=== PATIENT | female | born 1965 | race Caucasian/White ===

== ENCOUNTER 2016-11-01 16:03 | Emergency (ER) | payer MEDICAID ==
[~2016-11-01] VITALS: Ht 165.1 cm; Wt 100.2 kg
[2016-11-01 16:13] VITALS: BP 135/76
[2016-11-01] MEDS ORDERED: cefTRIAXone SOD 1,000 MG VL ONE (16:44)
[2016-11-01] MEDS ORDERED: cefTRIAXone W LIDOCAINE 1 GM IM IM ONE (16:45)
[2016-11-01] MEDS ORDERED: cefTRIAXone SOD 1,000 MG VL IM ONE (17:00)
== END 2016-11-01 17:28 | disposition home or self-care (01) ==
LOC: ER 16:13
DX: J02.0 Streptococcal pharyngitis (principal); I10 Essential (primary) hypertension; F17.210 Nicotine dependence, cigarettes, uncomplicated
CPT/HCPCS: 87880; 96372; 99283; J0696

== ENCOUNTER 2017-04-25 20:20 | Emergency (ER) | payer MEDICAID ==
[~2017-04-25] VITALS: Ht 165.1 cm; Wt 99.8 kg
[2017-04-25 20:42] VITALS: BP 175/87
[2017-04-25] MEDS ORDERED: KETOROLAC TROMETH 60MG/2ML VIAL IM ONE (21:30)
[2017-04-25 21:45] LABS: Basophils # (auto) 0 uL; Basophils % (auto) 0.4 % (0.0-2.0); CONDITION Y; Eosinophils # (auto) 0.1 uL; Eosinophils % (auto) 1.6 % (0.0-7.0); Hematocrit 37.3 % (36.0-46.0); Hemoglobin 12.4 g/dL (12.2-16.2); Lymphocytes # (auto) 2.7 uL; Lymphocytes % (auto) 37.8 % (10.0-50.0); Mean Corpuscular Hemoglobin 28.2 pg (28.0-32.0); Mean Corpuscular Hgb Conc. 33.3 g/dL (32.0-36.0); Mean Corpuscular Volume 84.8 fL (80.0-100.0); Mean Platelet Volume 8.8 fL (6.9-10.8); Monocytes # (auto) 0.5 uL; Monocytes % (auto) 6.4 % (0.0-12.0); Neutrophils # (auto) 3.8 uL; Neutrophils % (auto) 53.8 % (37.0-80.0); Platelet Count (auto) 286 10^3/uL (140-450); Red Cell Distribution Width 14.5 % (11.8-14.3)
== END 2017-04-26 00:45 | disposition home or self-care (01) ==
LOC: ER 20:21
DX: R60.9 Edema, unspecified (principal); I10 Essential (primary) hypertension; F17.210 Nicotine dependence, cigarettes, uncomplicated
CPT/HCPCS: 36415; 85025; 93970; 96372; 99285; J1885

== ENCOUNTER 2019-04-09 00:31 | Inpatient (IN) | payer MEDICAID ==
[~2019-04-09] VITALS: Ht 167.6 cm; Wt 102.6 kg
[2019-04-09 02:14] LABS: Basophils # (auto) 0.1 uL; Basophils % (auto) 0.5 % (0.0-2.0); Eosinophils # (auto) 0.1 uL; Eosinophils % (auto) 0.4 % (0.0-7.0); Hematocrit 43.9 % (36.0-46.0); Hemoglobin 14.6 g/dL (12.2-16.2); Lymphocytes # (auto) 3.6 uL; Lymphocytes % (auto) 22.3 % (10.0-50.0); Mean Corpuscular Hemoglobin 27.6 pg (28.0-32.0); Mean Corpuscular Hgb Conc. 33.3 g/dL (32.0-36.0); Mean Corpuscular Volume 82.9 fL (80.0-100.0); Monocytes # (auto) 1.3 uL; Monocytes % (auto) 7.9 % (0.0-12.0); Neutrophils # (auto) 11.3 uL; Neutrophils % (auto) 68.9 % (37.0-80.0); Platelet Count (auto) 319 10^3/uL (140-450); Red Cell Distribution Width 14.3 % (11.8-14.3); White Blood Cell 16.4 10^3/uL (4.4-10.8)
[2019-04-09 02:32] LABS: Albumin 3.5 g/dL (3.4-5.0); Amylase 32 U/L (25-115); Anion Gap 10 (5-15); Calcium 8.9 mg/dL (8.5-10.1); Carbon Dioxide 24 mmol/L (21-32); Chloride 97 mmol/L (98-107); Glucose 132 mg/dL (74-106); Lipase 41 U/L (73-393); Magnesium 2.5 mg/dL (1.6-2.6); Potassium 3.9 mmol/L (3.5-5.1); Sodium 131 mmol/L (136-145)
[2019-04-09 02:39] LABS: Alanine Aminotransferase 31 U/L (13-56); Alkaline Phosphatase 91 U/L (45-117); Aspartate Aminotransferase 21 U/L (15-37); BUN/Creatinine Ratio 16.9; Bilirubin, Total 0.6 mg/dL (0.2-1.0); Blood Urea Nitrogen 14 mg/dL (7-18); GFR African American 92 mL/min; GFR Non-African American 76 mL/min
[2019-04-09] MEDS ORDERED: PROCHLORPERAZINE EDISYLATE 5 MG/ML 2ML VIAL IV ONE (06:45)
[2019-04-09] MEDS ORDERED: HYDROmorphone HCL 2 MG/ML VL IV ONE (06:45)
[2019-04-09] MEDS ORDERED: metroNIDAZOLE 500MG/100ML 100 ML IV ONE (06:45)
[2019-04-09] MEDS ORDERED: FLEET ENEMA(ADULT) 135 ML PR ONE (06:45)
[2019-04-09] MEDS ORDERED: ACETAMINOPHEN 325 MG TAB PO PRN (07:00)
[2019-04-09] MEDS ORDERED: HYDROcodone-ACET 5/325MG TAB PO PRN (07:00)
[2019-04-09] MEDS ORDERED: MORPHINE SULFATE 4 MG/ML SYR/VIAL IV PRN (07:00)
[2019-04-09] MEDS: cefTRIAXone 1GM/50ML D5W 50 ML IV SCH (09:09)
[2019-04-09] MEDS: amLODIPine BESYLATE 5 MG TAB PO SCH (09:27)
[2019-04-09] MEDS: LISINOPRIL 20 MG TAB PO SCH (09:27)
[2019-04-09] MEDS: DOCUSATE SOD 100 MG CAP PO SCH ×2 (09:27→21:44)
[2019-04-09] MEDS: ONDANSETRON HCL 4 MG/2 ML VIAL IV PRN ×2 (09:28→18:41)
--- NOTE | 2019-04-09 10:11 | NUR ---
Admit from [facility] admitted to Telemetry unit after SBAR received. Patient oriented to MAHENDRA VALDOVINOS, primary RN, unit, room, bed, and unit policies regarding patient care and visiting hours. Patient weighed by bedscale and encouraged to call if they need something. All questions and concerns addressed, patient verbalized understanding.
--- NOTE | 2019-04-09 10:11 | NUR ---
Opening Shift Note Assumed care of patient, awake and alert. No S/S of distress/SOB or pain. Instructed on POC and to call for assist PRN, will continue to monitor for changes Q1hr and PRN.
[2019-04-09] MEDS: FAMOTIDINE 20 MG TAB PO SCH ×2 (10:15→21:44)
[2019-04-09 11:00] VITALS: BP 130/57
[2019-04-09 12:00] VITALS: BP 135/53
[2019-04-09] MEDS: metroNIDAZOLE 500MG/100ML 100 ML IV SCH ×2 (14:27→21:44)
--- NOTE | 2019-04-09 14:40 | NUR ---
Doctor Barreto at bedside.
[2019-04-09 17:00] VITALS: BP 123/58
[2019-04-09] MEDS: LACTULOSE 20Gm/30ML SOLN PO PRN (18:10)
--- NOTE | 2019-04-09 19:15 | NUR ---
Change of shift report given to belling machine operator RN, No distress noted.
--- NOTE | 2019-04-09 19:24 | NUR ---
Change of shift given to shift manager RN. No distress noted.
--- NOTE | 2019-04-09 19:30 | NUR ---
Opening Shift Note Received report from Kashif LUGO. Assumed care of patient, awake and alert, daughter at bedside. No S/S of distress/SOB or pain. Instructed on POC and to call for assist PRN, will continue to monitor for changes Q1hr and PRN.
[2019-04-09 20:00] VITALS: BP 120/36
[2019-04-09 21:53] VITALS: BP 120/36
[2019-04-10] MEDS: TEMAZEPAM 15 MG CAP PO PRN ×2 (00:02→21:44)
[2019-04-10 05:40] VITALS: BP 127/59
[2019-04-10 05:48] LABS: Basophils # (auto) 0 uL; Basophils % (auto) 0.7 % (0.0-2.0); Eosinophils # (auto) 0.1 uL; Eosinophils % (auto) 1.3 % (0.0-7.0); Hematocrit 39.2 % (36.0-46.0); Hemoglobin 13.2 g/dL (12.2-16.2); Lymphocytes # (auto) 2.4 uL; Lymphocytes % (auto) 34.5 % (10.0-50.0); Mean Corpuscular Hemoglobin 28.1 pg (28.0-32.0); Mean Corpuscular Hgb Conc. 33.6 g/dL (32.0-36.0); Mean Corpuscular Volume 83.7 fL (80.0-100.0); Monocytes # (auto) 0.7 uL; Monocytes % (auto) 9.4 % (0.0-12.0); Neutrophils # (auto) 3.8 uL; Neutrophils % (auto) 54.1 % (37.0-80.0); Nucleated Red Blood Cells % 0.1 %; Platelet Count (auto) 219 10^3/uL (140-450); Red Blood Cells 4.69 10^6/uL (4.0-5.20); Red Cell Distribution Width 14.1 % (11.8-14.3); White Blood Cell 7.1 10^3/uL (4.4-10.8)
[2019-04-10 05:57] LABS: Calcium 8.6 mg/dL (8.5-10.1); Potassium 3.8 mmol/L (3.5-5.1)
[2019-04-10 06:00] LABS: BUN/Creatinine Ratio 15.7
[2019-04-10] MEDS: metroNIDAZOLE 500MG/100ML 100 ML IV SCH ×3 (06:10→21:44)
--- NOTE | 2019-04-10 07:17 | NUR ---
Patient still sleeping, no pain the whole shift. Endorsed care to Reyna LUGO.
--- NOTE | 2019-04-10 07:30 | NUR ---
Opening Shift Note Assumed care of patient, awake and alert. No S/S of distress/SOB or pain on room air. Instructed on POC and to call for assist PRN, will continue to monitor for changes Q1hr and PRN. Bed in low and locked position, rails up x2, no-slip socks on.
[2019-04-10 09:00] VITALS: BP 117/44
[2019-04-10] MEDS: DOCUSATE SOD 100 MG CAP PO SCH ×2 (09:23→21:44)
[2019-04-10] MEDS: FAMOTIDINE 20 MG TAB PO SCH ×2 (09:23→21:44)
[2019-04-10] MEDS: amLODIPine BESYLATE 5 MG TAB PO SCH (09:24)
[2019-04-10] MEDS: cefTRIAXone 1GM/50ML D5W 50 ML IV SCH (09:24)
[2019-04-10] MEDS: LISINOPRIL 20 MG TAB PO SCH (09:24)
--- NOTE | 2019-04-10 12:10 | NUR ---
DR RICHARD AT BEDSIDE NO NEW ORDERS, PATIENT ADVANCED TO SOFT DIET, WILL CONTINUE TO MONITOR.
[2019-04-10 13:00] VITALS: BP 121/43
[2019-04-10 17:00] VITALS: BP 139/40
--- NOTE | 2019-04-10 20:00 | NUR ---
Opening Shift Note Assumed care of patient, awake and alert. No S/S of distress/SOB or pain. Instructed on POC and to call for assist PRN, will continue to monitor for changes Q1hr and PRN.With left leg to heel blue cast, able to move her toes, left heel surgery from [facility] by Dr. Chacko ,last March, patient said she felt swollen in her foot, to tell the hospitalist tomorrow.
[2019-04-10 22:00] VITALS: BP 125/47
--- NOTE | 2019-04-10 22:30 | NUR ---
IV removal IV DC'd in the left forearm with sterile technique, catheter fully intact. Pressure dressing applied to site. Patient tolerated procedure well.
--- NOTE | 2019-04-10 23:00 | NUR ---
IV insertion IV access obtained, via clean sterile technique by inserting 20 gauge catheter at right forearm after 1 attempt by Kathy Raygoza. IV secured properly. No trauma to site. Patient tolerated procedure well.
[2019-04-11] MEDS: metroNIDAZOLE 500MG/100ML 100 ML IV SCH ×3 (05:19→21:45)
[2019-04-11 05:49] VITALS: BP 138/63
--- NOTE | 2019-04-11 07:05 | NUR ---
Report given to Kathy Orellana, patient is asleep.
--- NOTE | 2019-04-11 07:30 | NUR ---
Opening Shift Note Assumed care of patient, awake and alert. No S/S of distress/SOB or pain. Instructed on POC and to call for assist PRN, will continue to monitor for changes Q1hr and PRN. Bed in low and locked position, rails up x2, no-slip socks on.
[2019-04-11 09:00] VITALS: BP 150/60
[2019-04-11] MEDS: FAMOTIDINE 20 MG TAB PO SCH ×2 (09:48→21:45)
[2019-04-11] MEDS: cefTRIAXone 1GM/50ML D5W 50 ML IV SCH (09:48)
[2019-04-11] MEDS: LACTULOSE 20Gm/30ML SOLN PO PRN (09:48)
[2019-04-11] MEDS: DOCUSATE SOD 100 MG CAP PO SCH ×2 (09:48→21:52)
[2019-04-11] MEDS: LISINOPRIL 20 MG TAB PO SCH (09:49)
[2019-04-11] MEDS: amLODIPine BESYLATE 5 MG TAB PO SCH (09:49)
--- NOTE | 2019-04-11 10:41 | NUR ---
DR RICHARD AT BEDSIDE NO NEW ORDERS, CONTINUE SOFT DIET, PATIENT COMPLAINTS OF NAUSEA
[2019-04-11 12:55] VITALS: BP 147/47
--- NOTE | 2019-04-11 13:50 | NUR ---
PATIENT SHOWER PATIENTS DAUGHTER AT BEDSIDE TO ASSIST WITH SHOWERING, PROVIDED ALL ITEMS FOR SHOWER INCLUDING A SHOWER CHAIR AND INFORMED ON NEED FOR SAFETY PRECAUTIONS, PATIENT VERBALIZES UNDERSTANDING.
[2019-04-11 16:56] VITALS: BP 115/50
[2019-04-11 21:42] VITALS: BP 153/60
[2019-04-11] MEDS: TEMAZEPAM 15 MG CAP PO PRN (21:46)
[2019-04-12] MEDS: metroNIDAZOLE 500MG/100ML 100 ML IV SCH (05:30)
[2019-04-12 05:42] VITALS: BP 145/58
[2019-04-12 06:12] LABS: Basophils # (auto) 0.1 uL; Eosinophils # (auto) 0.1 uL; Eosinophils % (auto) 1.3 % (0.0-7.0); Hematocrit 40.6 % (36.0-46.0); Hemoglobin 13.4 g/dL (12.2-16.2); Lymphocytes # (auto) 1.9 uL; Lymphocytes % (auto) 33.9 % (10.0-50.0); Mean Corpuscular Hemoglobin 27.5 pg (28.0-32.0); Mean Corpuscular Hgb Conc. 32.9 g/dL (32.0-36.0); Mean Corpuscular Volume 83.7 fL (80.0-100.0); Monocytes # (auto) 0.5 uL; Monocytes % (auto) 9.5 % (0.0-12.0); Neutrophils # (auto) 3.1 uL; Neutrophils % (auto) 54.3 % (37.0-80.0); Platelet Count (auto) 233 10^3/uL (140-450); Red Blood Cells 4.85 10^6/uL (4.0-5.20); Red Cell Distribution Width 14.1 % (11.8-14.3); White Blood Cell 5.6 10^3/uL (4.4-10.8)
[2019-04-12 06:30] LABS: Albumin 3.1 g/dL (3.4-5.0); BUN/Creatinine Ratio 14.9; Calcium 8.6 mg/dL (8.5-10.1); Potassium 3.7 mmol/L (3.5-5.1)
[2019-04-12 06:31] LABS: Bilirubin, Total 0.3 mg/dL (0.2-1.0); Total Protein 6.7 g/dL (6.4-8.2)
--- NOTE | 2019-04-12 07:08 | NUR ---
Report given to Kathy Mcqueen, patient is resting no distress.
[2019-04-12 09:00] VITALS: BP 151/61
[2019-04-12] MEDS: cefTRIAXone 1GM/50ML D5W 50 ML IV SCH (09:00)
[2019-04-12] MEDS: DOCUSATE SOD 100 MG CAP PO SCH (10:04)
[2019-04-12] MEDS: amLODIPine BESYLATE 5 MG TAB PO SCH (10:05)
[2019-04-12] MEDS: LISINOPRIL 20 MG TAB PO SCH (10:05)
[2019-04-12] MEDS: FAMOTIDINE 20 MG TAB PO SCH (10:05)
--- NOTE | 2019-04-12 11:45 | NUR ---
DISCHARGE ORDER DR. RICHARD CALLED EARLIER AND GAVE ORDERS FOR PO ANTIBIOTICS FOR PATIENT: FLAGYL 250 MG PO TID X 5 DAYS LEVAQUIN 500 MG PO DAILY X 5 DAYS. HE GAVE ORDERS FOR PATIENT DISCHARGE AND STATED HE WOULD TRY TO PUT THE ORDER IN. ORDER HAS NOT BEEN PUT IN, THIS NURSE PUT THE ORDER IN. CALLED IN PRESCRIPTIONS TO PATIENT'S PHARMACY ([facility] ON [address] PATIENT STATED SHE WOULD LIKE TO SHOWER BEFORE SHE LEAVES BECAUSE HER SHOWER IS UPSTAIRS AND SHE IS NON WEIGHT BEARING ON THE LEFT LEG AND CANNOT GET UP THE STAIRS.
[2019-04-12] MEDS ORDERED: LEVOFLOXACIN 500 MG TAB PO SCH (12:00)
[2019-04-12 13:00] VITALS: BP 146/59
--- NOTE | 2019-04-12 13:07 | NUR ---
DISCHARGE WENT OVER DISCHARGE PAPERWORK WITH PATIENT. REMOVED IV. REMOVED ID BAND. COVERED CAST TO LEFT LEG SO PATIENT CAN SHOWER. FAMILY AT BEDSIDE TO ASSIST PATIENT WITH SHOWER. SHE WILL LET THIS NURSE KNOW WHEN SHE IS READY TO LEAVE AND A WHEELCHAIR WILL BE BROUGHT TO HER TO TAKE HER DOWN TO A PRIVATE VEHICLE.
[2019-04-12] MEDS ORDERED: metroNIDAZOLE 500 MG TAB PO SCH (14:00)
[2019-04-13] MEDS ORDERED: LEVOFLOXACIN 500 MG TAB PO SCH (11:00)
== END 2019-04-12 13:36 | disposition home or self-care (01) | DRG 244 ==
LOC: ER 00:35 → OVERFLOW 00:36 → EAST 10:11
PROVIDERS: ADMIT Nurse Practitioner; ATTEND Internal Medicine
DX: K57.32 Diverticulitis of large intestine without perforation or abscess without bleeding (principal); K76.0 Fatty (change of) liver, not elsewhere classified; E44.1 Mild protein-calorie malnutrition; E88.09 Other disorders of plasma-protein metabolism, not elsewhere classified; E66.01 Morbid (severe) obesity due to excess calories; F41.9 Anxiety disorder, unspecified; K59.00 Constipation, unspecified; I10 Essential (primary) hypertension; Z68.36 Body mass index [BMI] 36.0-36.9, adult; Z72.0 Tobacco use; Z98.51 Tubal ligation status
CPT/HCPCS: 36415; 74176; 80048; 80053; 82150; 83690; 83735; 84484; 85025; 94761; 96365; 96375; G0378; J0696; J2405; J3490

== ENCOUNTER 2021-09-16 15:45 | Emergency (ER) | payer MEDICAID ==
[~2021-09-16] VITALS: Ht 165.1 cm; Wt 81.6 kg
[2021-09-16] MEDS ORDERED: KETOROLAC TROMETH 60MG/2ML VIAL IM ONE (16:00)
[2021-09-16 16:45] LABS: Urine Bacteria FEW /hpf (None Seen); Urine Blood Negative /uL (Negative); Urine Hyaline Cast FEW /lpf (0 - 2); Urine Mucus FEW (None Seen); Urine Specific Gravity 1.008 (1.001-1.035); Urine WBC 2 /hpf (0 - 5)
[2021-09-16] MEDS ORDERED: ONDANSETRON ODT 4 MG TAB PO ONE (17:30)
[2021-09-16] MEDS ORDERED: HYDROmorphone HCL 2 MG/ML VL IM ONE (17:30)
[2021-09-16 17:45] VITALS: BP 145/72
== END 2021-09-16 18:00 | disposition home or self-care (01) ==
LOC: ER 15:45
DX: S39.012A Strain of muscle, fascia and tendon of lower back, initial encounter (principal); E11.9 Type 2 diabetes mellitus without complications; E78.5 Hyperlipidemia, unspecified; I10 Essential (primary) hypertension; Z98.51 Tubal ligation status; X58.XXXA Exposure to other specified factors, initial encounter; Y93.89 Activity, other specified; Y92.89 Other specified places as the place of occurrence of the external cause; Y99.8 Other external cause status
CPT/HCPCS: 72100; 81001; 93005; 96372; 99285; J1170; J1885; Q0162

== ENCOUNTER 2022-05-11 21:05 | Emergency (ER) | payer MEDICAID ==
[~2022-05-11] VITALS: Ht 165.1 cm; Wt 83.1 kg
[2022-05-11 21:33] VITALS: BP 176/76
== END 2022-05-12 05:20 | disposition left against medical advice (07) ==
LOC: ER 21:05
DX: M54.2 Cervicalgia (principal); M25.511 Pain in right shoulder; Z53.21 Procedure and treatment not carried out due to patient leaving prior to being seen by health care provider

== ENCOUNTER 2025-06-13 14:03 | Emergency (ER) | payer MEDICAID ==
[~2025-06-13] VITALS: Ht 167.6 cm; Wt 70.3 kg
[2025-06-13 14:04] VITALS: TEMP 98.7; O2SAT 97
--- NOTE | 2025-06-13 14:35 | ED.PDOC ---
Back pain HPI HPI Comments 60-year-old female that presents to the ED chief complaint of back pain. Patient has been week prior she was washing the patient's anti she turned around and she heard a tweak. Patient states since she has been having lower back pain to the left lower back. Patient states the pain is constant nonradiating worse with movement or ambulation. Patient does have history history of degenerative disc disease. Patient states she did take Orrington 4 hours prior 5 mg with a minimal relief of pain. The patient denies any associated fall or trauma. Patient otherwise denies any other symptoms. Chief Complaint: Back Pain Time Seen by MD: 14:31 Primary Care Provider: Brenden Reviewed Notes: Medications, Allergies Allergies: Coded Allergies: NO KNOWN ALLERGIES (Unverified , 06/08/10) Home Meds No Active Prescriptions or Reported Meds Information Source: Patient, Relative Mode of Arrival: Wheelchair Brought in by: Family Timing: Days Past Medical History PAST MEDICAL HISTORY: DM, High Lipids, HTN Surgical History: BTL, Hernia Repair, Tubal Ligation DIRECTOR TALENT History: No Pertinent DIRECTOR TALENT History Family History Family History: Unknown Social History Smoker: Non-Smoker, Quit Less Than 1 Year Alcohol: Denies ETOH Use Drugs: Denies Drug Use Lives In: Home Constitutional: denies: chills, diaphoresis, fatigue, fever, malaise, sweats, weakness, others EENTM: denies: blurred vision, double vision, ear bleeding, ear discharge, ear drainage, ear pain, ear ringing, eye pain, eye redness, hearing loss, mouth erik n, mouth swelling, nasal discharge, nose bleeding, nose congestion, nose pain, photophobia, tearing, throat pain, throat swelling, voice changes, others Respiratory: denies: cough, hemoptysis, orthopnea, SOB at rest, shortness of breath, SOB with excertion, stridor, wheezing, others Cardiovascular: denies: chest pain, dizzy spells, diaphoresis, Dyspnea on exertion, edema, irregular heart beat, left arm pain, lightheadedness, palpitations, PND, syncope, others Gastrointestinal: denies: abdomen distended, abdominal pain, blood streaked bowels, constipated, diarrhea, dysphagia, difficulty swallowing, hematemesis, melena, nausea, poor appetite, poor fluid intake, rectal bleeding, rectal pain, vomiting, others Genitourinary: denies: abnormal vagina bleeding, burning, dyspareunia, dysuria, flank pain, frequency, hematuria, incontinence, pain, , vagina discharge, urgency, others Neurological: denies: dizziness, fainting, headache, left sided numbness, left sided weakness, numbness, paresthesia, pre-existing deficit, right sided numbness, right sided weakness, seizure, speech problems, tingling, tremors, weakness, others Musculoskeletal: reports: back pain; denies: gout, joint pain, joint swelling, muscle pain, muscle stiffness, neck pain, others Integumetry: denies: bruises, change in color, change in hair/nails, dryness, laceration, lesions, lumps, rash, wounds, others Allergic/Immunocompromised: denies: Difficulty Healing, Frequent Infections, Hives, Itching, others Hematologic/Lymphatic: denies: anemia, blood clots, easy bleeding, easy bruisin g, swollen glands, others Endocrine: denies: excessive hunger, excessive sweating, excessive thirst, excessive urination, flushing, intolerance to cold, intolerance to heat, unexplained weight gain, unexplained weight loss, others Psychiatric: denies: anxiety, bipolar disorder, depression, hopeless, panic disorder, schizophrenia, sleepless, suicidal, others All Other Systems: Reviewed and Negative Physical Exam General Appearance: No Apparent Distress, Normal HEENT: Normal ENT Inspection, Pharynx Normal, TMs Normal Neck: Full Range of Motion, Non-Tender, Normal, Normal Inspection Respiratory: Chest Non-Tender, Lungs Clear, No Accessory Muscle Use, No Respiratory Distress, Normal Breath Sounds Cardiovascular: No Edema, No JVD, No Murmur, No Gallop, Normal Peripheral Pulses, Regular Rate/Rhythm Breast Exam: Deferred Gastrointestinal: No Organomegaly, Non Tender, No Pulsatile Mass, Normal Bowel Sounds, Soft Genitalia: Deferred Pelvic: Deferred Rectal: Deferred Extremities: Tender (Left lumbar sacral spine tenderness to palpation) Musculoskeletal : Apperance: Normal Neurologic: Alert, back joiner II-XII nml as Tested, No Motor Deficits, Normal Affect, Normal Mood, No Sensory Deficits Cerebellar Function: Normal Reflexes: Normal Skin: Dry, Normal Color, Warm Lymphatic: No Adenopathy Was a procedure done? Was a procedure done?: No Back Pain Differential Dx Differential Diagnosis: DJD, Musculoskeletal Pain, Strain Other Differential Diagnosis Lower back pain, muscle spasm, strain, chronic back pain, lumbar radiculopathy X-Ray, Labs, Meds, VS Vital Signs Date Time Temp Pulse Resp B/P (MAP) Pulse Ox O2 Delivery O2 Flow Rate FiO2 06/13/25 14:45 89 18 145/74 06/13/25 14:04 98.7 105 16 145/80 97 98.7 Lab Test 06/13/25 14:30 Range/Units Urine Color Yellow Yellow Urine Clarity Clear Clear Urine pH 6.0 5.0-9.0 Urine Specific [place] 1.043 H 1.001-1.035 Urine Protein Trace H Negative Urine Ketones Trace Negative Urine Blood Negative Negative /uL Urine Nitrite Negative Negative Urine Bilirubin Negative Negative Urine Urobilinogen 2 H Negative mg/dL Urine Leukocyte Esterase Negative Negative /uL Urine RBC 1 0 - 4 /hpf Urine Microscopic WBC 2 0-5 /HPF Urine Squamous Epithelial Cells Few <5 /hpf Urine Bacteria Few H None Seen /hpf Urine Hyaline Casts Few 0 - 2 /lpf Urine Mucus Few None Seen Urine Glucose 4+ H Normal mg/dL Current Medications Medications (Trade) Dose Ordered Sig/Ledy Route Start Time Stop Time Status Last Admin Hydromorphone HCl (Dilaudid Injection) 0.8 mg ONCE ONCE IM 06/13/25 14:45 06/13/25 14:46 DC 06/13/25 14:45 X-Ray, Labs, Meds, VS Comment Patient arrives alert and oriented, ABC's intact, afebrile, vital signs stable, saturating well in room air Urinalysis was ordered to rule out UTI or hematuria. Diagnostic imaging ordered by me and results interpreted by radiology : Labs in the ED showed (pertinent+ and then pertinent-) Patient was given: Orrington 0.8 mg IM injection. Tolerated medications with no adverse reaction. Additional MDM Review of External, Non-ED records: External records reviewed. Discussion with independent historian (EMS, family) history obtained from the patient/parents (if applicable) at bedside Chronic conditions affecting care: None Social determinants of health affecting care: None Consideration of admission (observation or admission): I considered escalation of care to admission for this patient, however given the reassuring workup, the patient is safe for outpatient management. Discussion with the Radiology: No Tests considered but not performed: Prescription medication considered but not given: 12 lead EKG interpretation: Time of 1ST Reevaluation: 15:05 Reevaluation 1ST: Unchanged Patient Education/Counseling: Diagnosis, Treatment Family Education/Counseling: Diagnosis, Treatment SEPSIS Sepsis Screen Date sepsis recognized/suspect: Jun 13, 2025 Time Sepsis recognized/suspect: 1404 Recent Procedure: No On Antibiotic Therapy: No Respiratory Rate >20: No Heart Rate >90: Yes Temp<36 C (96.8 F) or >38.3 C: No SBP <90 or MAP <65 mmHG: No New Acute Mental Status Change: No Is the patient on CPAP, BIPAP,: No Vital Signs Date Time Temp Pulse Resp B/P (MAP) Pulse Ox O2 Delivery O2 Flow Rate FiO2 06/13/25 14:45 89 18 145/74 06/13/25 14:04 98.7 105 16 145/80 97 98.7 Medications Medications Dose Ordered Sig/Ledy Route Start Time Stop Time Status Last Admin Dose Admin Hydromorphone HCl 0.8 mg ONCE ONCE IM 06/13/25 14:45 06/13/25 14:46 DC 06/13/25 14:45 Departure 1 Departure Time of Disposition: 16:38 Impression: Primary Impression: Chronic back pain Qualified Codes: M54.50 - Low back pain, unspecified; G89.29 - Other chronic pain Disposition: 01 HOME / SELF CARE / HOMELESS Condition: Stable e-Prescriptions No Active Prescriptions or Reported Meds Discharged With: Relative Critical Care Note Critical Care Time?: No Stability Stability form required: No Heart Score Heart Score: Heart Score Response (Comments) Value History N/A 0 EKG N/A 0 Age N/A 0 Risk Factors N/A 0 Troponin N/A 0 Total 0 I personally scribed for CALIXTO MILNER NP ([email or web address]) on 06/13/25 at 14:35. Electronically submitted by Rey Raman ([id number]). I personally scribed for CALIXTO MILNER NP ([email or web address]) on 06/13/25 at 16:30. Electronically submitted by Rey Raman ([id number]). CALIXTO MILNER NP Jun 13, 2025 14:35
[2025-06-13] MEDS: HYDROmorphone HCL 2 MG/ML VL/or syr IM ONE (14:45)
[2025-06-13 16:31] LABS: Urine Protein, UAD TRACE (Negative)
[2025-06-13 17:15] VITALS: BP 136/73; PULSE 82; RESP 18
== END 2025-06-13 17:17 | disposition home or self-care (01) ==
LOC: ER 14:03
DX: G89.29 Other chronic pain (principal); M54.50 Low back pain, unspecified; I10 Essential (primary) hypertension; E11.9 Type 2 diabetes mellitus without complications; Z98.890 Other specified postprocedural states; Z98.51 Tubal ligation status
CPT/HCPCS: 81001; 96372; 99283; J1171